=== PATIENT | female | born 1990 | race Caucasian/White ===

== ENCOUNTER 2017-01-15 22:34 | Emergency (ER) | payer MEDICARE | END 2017-01-16 03:00 | disposition left against medical advice (07) | LOC: ER1 22:34 | DX: Z53.21 Procedure and treatment not carried out due to patient leaving prior to being seen by health care provider (principal) ==

== ENCOUNTER 2017-04-02 03:31 | Emergency (ER) | payer OTHER ==
[2017-04-02 04:53] LABS: BUN/CREATININE RATIO 16 (0-10)
[2017-04-02 05:40] LABS: HEMOGLOBIN 10.1 gm/dl (12.3-15.3); RED BLOOD COUNT 4.53 M/UL (4.00-5.10); WHITE BLOOD COUNT 8.6 K/UL (4.5-11.0)
== END 2017-04-02 09:40 | disposition home or self-care (01) ==
LOC: ER1 03:31
PROVIDERS: Student in an Organized Health Care Education/Training Program
DX: O23.592 Infection of other part of genital tract in pregnancy, second trimester (principal); O23.42 Unspecified infection of urinary tract in pregnancy, second trimester; B96.89 Other specified bacterial agents as the cause of diseases classified elsewhere; Z3A.17 17 weeks gestation of pregnancy
CPT/HCPCS: 36415; 80053; 81001; 82728; 83540; 83550; 83690; 85025; 85610; 85730; 86850; 86900; 86901; 87077; 87086; 87186; 87210; 96361; 96365; 99283; J0696

== ENCOUNTER 2022-02-04 23:04 | Emergency (ER) | payer OTHER ==
[~2022-02-04 23:04] MED LIST: BACTROBAN OINT22 GM EXT; BENTYL 20MG TAB20 MG PO; DOXYCYCLINE MO100 M1 PO; KEFLEX CAP 500500 MG PO; LODINE CAP 300300 MG PO; NORFLEX 100 MG100 MG PO; OMNICEF 300 MG300 MG PO; ZOFRAN ODT 4 MG4 MG PO; ZOFRAN4 MG PO
[2022-02-04 23:39] LABS: HEMOGLOBIN 8.7 gm/dl (12.3-15.3); RED BLOOD COUNT 4.56 M/UL (4.00-5.10); WHITE BLOOD COUNT 6.3 K/UL (4.5-11.0)
[2022-02-05 00:03] LABS: BUN/CREATININE RATIO 18 (0-10)
== END 2022-02-05 03:50 | disposition home or self-care (01) ==
LOC: ER1 23:04
PROVIDERS: Student in an Organized Health Care Education/Training Program
DX: R00.1 Bradycardia, unspecified (principal); R00.2 Palpitations
CPT/HCPCS: 71046; 80053; 82550; 82553; 84439; 84443; 84484; 85025; 93005; 99285

== ENCOUNTER 2022-02-08 18:14 | Emergency (ER) | payer OTHER | END 2022-02-08 23:45 | disposition home or self-care (01) | LOC: ER1 18:14 | DX: G44.209 Tension-type headache, unspecified, not intractable (principal) | CPT/HCPCS: 70450; 96372; 96374; 96375; 99284; J1200; J1885; J2765; J3030 ==